=== PATIENT | male | born 1940 | race Caucasian/White ===

== ENCOUNTER → 2016-11-14 | Outpatient (CLI) | payer MEDICARE, BC ==
[~2016-11-14] MED LIST: ALEV220T26 PO; ASPI1TAB PO; GLUC1CAP10 PO; OCUVTAB4 PO; OMEP40CA2 PO; VITA100066 PO; VITMTA PO
--- NOTE | 2016-11-18 06:34 | EEG ---
DATE OF PROCEDURE: 11/14/2016 REFERRING PHYSICIAN: Dr. Archana Mitchell. DIAGNOSIS: Transient ischemic attack. EEG NUMBER: [id number]. HISTORY: Patient is a 76-year-old man who was admitted at [facility] who became confused and did not know what he was doing and kept repeating himself. This EEG was done to rule out epileptic potential. He is currently taking aspirin, Prilosec, multivitamins. TECHNICAL DESCRIPTION: This digital EEG was recorded by 21 scalp, ear and two EKG electrodes and was reviewed in bipolar and referential montages following reformatting in 10-20 international electrode placement system. INTERPRETATION: The patient was noted to be in awake and drowsy states during this EEG. Resting awake background consisted of well formed posterior dominant rhythm with anterior/posterior gradient comprising of 8 Hertz alpha activity measuring 15 - 40 microvolts in amplitude. Attenuation of posterior dominant rhythm was seen during transition into drowsiness. Stage I and II sleep were reviewed and were symmetric bilaterally. Hyperventilation and photic stimulation remained unremarkable. EKG revealed normal sinus rhythm with premature atrial complexes. No focal, lateralizing or epileptiform abnormalities were seen. No clinical or electrographic seizures were recorded. CONCLUSION: This EEG in awake, drowsy states, stage I and II sleep is within normal limits.
== END ==
LOC: M SLEEP 09:34
PROVIDERS: ATTEND Internal Medicine Nephrology
DX: R56.9 Unspecified convulsions (principal)

== ENCOUNTER → 2017-01-09 | Outpatient (CLI) | payer MEDICARE, BC ==
--- NOTE | 2017-01-09 15:00 | REP ---
Whole body radionuclide bone scan: History: Prostate malignancy. Recently elevated PSA levels post prostatectomy. No comparison bone scan. Technique: 22.0 mCi technetium 99m MDP is injected and standard whole body bone scan imaging is acquired. Scintigraphic findings: There is a normal distribution of skeletal tracer with uptake in bilateral kidneys and in the urinary bladder. There is some arthritic uptake in the knees bilaterally and in the wrists bilaterally. 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 There is some degenerative uptake at L4-5 in the lumbar spine and to a lesser extent in the thoracic spine. There is no evidence to suggest skeletal metastatic disease based on the bone scan images. Impression: No evidence to suggest skeletal metastatic disease. Signed by Ethan De Leon MD 01/09/2017 04:47 P
== END ==
LOC: M RAD 10:17
PROVIDERS: ATTEND Radiology Therapeutic Radiology
DX: C61 Malignant neoplasm of prostate (principal)
CPT/HCPCS: 78306; A9503

== ENCOUNTER → 2017-04-14 | Outpatient (CLI) | payer MEDICARE, BC ==
[~2017-04-14] MED LIST changes: +TYLE325T5 PO
[2017-04-14 16:24] LABS: ANION GAP 5 MEQ/L (8-16); BLOOD UREA NITROGEN 20 MG/DL (7-18); CALCIUM LEVEL 8.3 MG/DL (8.8-10.2); CARBON DIOXIDE LEVEL 31 MEQ/L (21-32); CHLORIDE LEVEL 104 MEQ/L (98-107); CREATININE FOR GFR 1.06 MG/DL (0.70-1.30); GLOMERULAR FILTRATION RATE > 60.0 (>42); GLUCOSE, FASTING 139 MG/DL (83-110); POTASSIUM SERUM 4.2 MEQ/L (3.5-5.1); SODIUM LEVEL 140 MEQ/L (136-145)
--- NOTE | 2017-04-14 16:32 | ECGEPIP ---
Stationary ECG Study [facility] Test Date: 2017-04-14 Pat Name: MELANIE OWENS Department: Room: - Gender: M Manager Law: NHI : 1940 Requested By: John Ta Order Number: [id number] Reading MD: John Gonzalez Measurements Intervals [place] Rate: 63 P: 49 WV: 144 QRS: 36 QRSD: 96 T: 24 QT: 392 QTc: 402 Interpretive Statements SINUS RHYTHM WITH MARKED SINUS ARRHYTHMIA Electronically Signed On 04-14-2017 16:32:11 EDT by John Gonzalez
== END ==
LOC: M LAB 15:13
PROVIDERS: ATTEND Ophthalmology
DX: H25.12 Age-related nuclear cataract, left eye (principal)

== ENCOUNTER → 2017-04-30 | Day surgery (SDC) | payer MEDICARE, BC ==
[~2017-04-30] VITALS: Ht 170.2 cm; Wt 73.9 kg
[~2017-04-30] MED LIST changes: +ACETYLCHOLINE OPHTH SOLN 1% 2ML (MIOCHOL-E) As Ordered ONE; +BALANCED SALT IRRIGATION SOL 500ML GLASS BOTTLE (FOR OR EYE COMPOUND) As Ordered ONE; +BALANCED SALT IRRIGATION SOLUTION 500ML BAG (FOR OR EYE MACHINE) As Ordered ONE; +CEFUROXIME 1MG/0.1ML INTRACAMERAL INJ As Ordered ONE; +D5W/0.2% SODIUM CHLORIDE 250 ML IV ONE; +DUOVISC (0.50ML VISCOAT/0.55ML PROVISC) OPHTH KIT As Ordered ONE; +LIDOCAINE 0.75%/EPINEPHRINE 0.025% IN BSS 1ML SYR INTRACAMERAL (OR ONLY) As Ordered ONE; +LIDOCAINE 4% INJ 5 ML AMP As Ordered ONE; +MIDAZOLAM INJ 2 MG/2 ML VIAL (J2250) As Ordered ONE; +OFLOXACIN 0.3 % (OCUFLOX) OPTH SOL 5ML OS ONE; +PHENYLEPHRINE 2.5% OPHTH SOL 2ML OS ONE; +POVIDONE-IODINE 5% OPHTH PREP SOL 30ML As Ordered ONE; +PROPARACAINE 0.5% OPHTH SOL 15ML OS ONE; +TROPICAMIDE 1% OPHTH SOLN 2ML OS ONE; +fentaNYL 100 MCG/2 ML INJECTION (J3010) As Ordered ONE
[2017-04-30 14:00] VITALS: BP 127/51
--- NOTE | 2017-05-01 09:05 | RO ---
DATE OF PROCEDURE: 04/30/2017 PREOPERATIVE DIAGNOSIS: Visually significant nuclear sclerotic cataract left eye. POSTOPERATIVE DIAGNOSIS: Visually significant nuclear sclerotic cataract left eye. PROCEDURE: Cataract extraction with use of phacoemulsification, and placement of intraocular lens, AU00T0, 17.5 D , left eye. SURGEON: Arsalan Cavazos DO [employer]ENOGRAPHIC [employer] REPORTER: ANESTHESIA: Local with monitored anesthesia care (MAC). COMPLICATIONS: None. POSTOPERATIVE CONDITION: Stable. INDICATION FOR SURGERY: Blurred vision left eye affecting patient's activities of daily living. DESCRIPTION OF PROCEDURE: The patient was seen in the preoperative area and properly identified. The correct operative eye was identified and marked. Attention was turned to that eye. The patient received topical antibiotics in the preoperative area. The patient then received topical dilating drops consisting of Tropicamide and Phenylephrine. The patient was then transferred to the operating room. The correct side was re-identified. The patient received topical anesthetics and antibiotics on the surface of the eye. The eye was prepped and draped in a sterile fashion. The upper and lower eyelids were isolated with Tegaderm tape, and the lids were held open with an adjustable speculum. Using a sideport blade, a paracentesis incision was made. Intraocular preservative-free lidocaine was then injected into the anterior chamber. Viscoelastic was then injected into the anterior chamber through the paracentesis. Using a 2.6 mm sharp-tipped keratome, the anterior chamber was entered via a temporal clear corneal incision. A continuous curvilinear capsulorrhexis was created with the aid of a 26g cystotome and utrata forceps. Hydrodissection was performed with balanced salt solution (BSS) on a blunt cannula until the nucleus was freely mobile. The crystalline lens was phacoemulsified and aspirated. Additional cohesive viscoelastic was placed into the capsular bag to deepen it. AU00T0 lens 17.5 D was placed into the capsular bag and confirmed by visualizing the continuous curvilinear capsulorrhexis. Additional irrigation and aspiration was used to remove cortical material and remaining viscoelastic. The clear corneal incision was hydrated with BSS on a blunt cannula. The lens was well positioned. The incisions were then tested for leaks and found to be negative. The eye was then palpated for appropriate pressure and adjusted accordingly with BSS. The eyelid speculum was carefully removed. A shield was then secured over the eye. The patient tolerated the procedure well and was discharged to the recovery unit in a stable condition. HAYDEN
== END | disposition home or self-care (01) ==
LOC: M SDC 11:31
PROVIDERS: ATTEND Ophthalmology
DX: H25.12 Age-related nuclear cataract, left eye (principal); K44.9 Diaphragmatic hernia without obstruction or gangrene; I49.1 Atrial premature depolarization; K21.9 Gastro-esophageal reflux disease without esophagitis; M54.9 Dorsalgia, unspecified; R32 Unspecified urinary incontinence; F17.290 Nicotine dependence, other tobacco product, uncomplicated; Z79.899 Other long term (current) drug therapy; Z79.82 Long term (current) use of aspirin; Z86.73 Personal history of transient ischemic attack (TIA), and cerebral infarction without residual deficits; Z85.46 Personal history of malignant neoplasm of prostate; Z86.19 Personal history of other infectious and parasitic diseases; Z92.3 Personal history of irradiation
CPT/HCPCS: 66984; J2250; J3010; V2632

== ENCOUNTER → 2017-05-14 | Day surgery (SDC) | payer MEDICARE, BC ==
[~2017-05-14] VITALS: Ht 170.2 cm; Wt 73.9 kg
[~2017-05-14] MED LIST changes: -BALANCED SALT IRRIGATION SOL 500ML GLASS BOTTLE (FOR OR EYE COMPOUND) As Ordered ONE; -D5W/0.2% SODIUM CHLORIDE 250 ML IV ONE; +LR 500 ML IV ONE; +OFLOXACIN 0.3 % (OCUFLOX) OPTH SOL 5ML OD ONE; -OFLOXACIN 0.3 % (OCUFLOX) OPTH SOL 5ML OS ONE; +PHENYLEPHRINE 2.5% OPHTH SOL 2ML OD ONE; -PHENYLEPHRINE 2.5% OPHTH SOL 2ML OS ONE; +PROPARACAINE 0.5% OPHTH SOL 15ML OD ONE; -PROPARACAINE 0.5% OPHTH SOL 15ML OS ONE; +TROPICAMIDE 1% OPHTH SOLN 2ML OD ONE; -TROPICAMIDE 1% OPHTH SOLN 2ML OS ONE
[2017-05-14 12:00] VITALS: BP 148/85
--- NOTE | 2017-05-21 18:52 | RO ---
DATE OF PROCEDURE: 05/14/2016 PREOPERATIVE DIAGNOSIS: Visually significant nuclear sclerotic cataract right eye. POSTOPERATIVE DIAGNOSIS: Visually significant nuclear sclerotic cataract right eye. PROCEDURE: Cataract extraction with use of phacoemulsification, and placement of intraocular lens, AU00T0, 18.0 diopters, right eye. SURGEON: Arsalan Cavazos DO CUSTOMER TRAINER: ANESTHESIA: Local with monitored anesthesia care (MAC). COMPLICATIONS: None. POSTOPERATIVE CONDITION: Stable. INDICATION FOR SURGERY: Blurred vision right eye affecting patient's activities of daily living. DESCRIPTION OF PROCEDURE: The patient was seen in the preoperative area and properly identified. The correct operative eye was identified and marked. Attention was turned to that eye. The patient received topical antibiotics in the preoperative area. The patient then received topical dilating drops consisting of Tropicamide and Phenylephrine. The patient was then transferred to the operating room. The correct side was re-identified. The patient received topical anesthetics and antibiotics on the surface of the eye. The eye was prepped and draped in a sterile fashion. The upper and lower eyelids were isolated with Tegaderm tape, and the lids were held open with an adjustable speculum. Using a sideport blade, a paracentesis incision was made. Intraocular preservative-free lidocaine was then injected into the anterior chamber. Viscoelastic was then injected into the anterior chamber through the paracentesis. Using a 2.6 mm sharp-tipped keratome, the anterior chamber was entered via a temporal clear corneal incision. A continuous curvilinear capsulorrhexis was created with the aid of a 26g cystotome and utrata forceps. Hydrodissection was performed with balanced salt solution (BSS) on a blunt cannula until the nucleus was freely mobile. The crystalline lens was phacoemulsified and aspirated. Additional cohesive viscoelastic was placed into the capsular bag to deepen it. A AU00T0 lens, 18.0 diopters was placed into the capsular bag and confirmed by visualizing the continuous curvilinear capsulorrhexis. Additional irrigation and aspiration was used to remove cortical material and remaining viscoelastic. The clear corneal incision was hydrated with BSS on a blunt cannula. The lens was well positioned. The incisions were then tested for leaks and found to be negative. The eye was then palpated for appropriate pressure and adjusted accordingly with BSS. The eyelid speculum was carefully removed. An eye shield was placed over the eye. The patient tolerated the procedure well and was discharged to the recovery unit in a stable condition. HAYDEN
== END | disposition home or self-care (01) ==
LOC: M SDC 09:22
PROVIDERS: ATTEND Ophthalmology
DX: H25.11 Age-related nuclear cataract, right eye (principal); K21.9 Gastro-esophageal reflux disease without esophagitis; Z86.73 Personal history of transient ischemic attack (TIA), and cerebral infarction without residual deficits; Z92.3 Personal history of irradiation; Z85.46 Personal history of malignant neoplasm of prostate; Z79.82 Long term (current) use of aspirin
CPT/HCPCS: 66984; J2250; J3010; V2632

== ENCOUNTER → 2017-11-24 | Outpatient (CLI) | payer MEDICARE, BC | LOC: M RAD 13:39 | DX: M51.16 Intervertebral disc disorders with radiculopathy, lumbar region (principal); M51.26 Other intervertebral disc displacement, lumbar region | CPT/HCPCS: 72131 ==

== ENCOUNTER 2017-12-28 10:59 | Day surgery (SDC) | payer MEDICARE, BC ==
[~2017-12-28 10:59] MED LIST changes: -ACETYLCHOLINE OPHTH SOLN 1% 2ML (MIOCHOL-E) As Ordered ONE; -ALEV220T26 PO; -ASPI1TAB PO; -BALANCED SALT IRRIGATION SOLUTION 500ML BAG (FOR OR EYE MACHINE) As Ordered ONE; -CEFUROXIME 1MG/0.1ML INTRACAMERAL INJ As Ordered ONE; -DUOVISC (0.50ML VISCOAT/0.55ML PROVISC) OPHTH KIT As Ordered ONE; -GLUC1CAP10 PO; -LIDOCAINE 0.75%/EPINEPHRINE 0.025% IN BSS 1ML SYR INTRACAMERAL (OR ONLY) As Ordered ONE; +LIDOCAINE 2% INJ 100 MG/5 ML SDV (FOR ANES.) As Ordered; -LIDOCAINE 4% INJ 5 ML AMP As Ordered ONE; -LR 500 ML IV ONE; -MIDAZOLAM INJ 2 MG/2 ML VIAL (J2250) As Ordered ONE; -OCUVTAB4 PO; -OFLOXACIN 0.3 % (OCUFLOX) OPTH SOL 5ML OD ONE; -OMEP40CA2 PO; -PHENYLEPHRINE 2.5% OPHTH SOL 2ML OD ONE; -POVIDONE-IODINE 5% OPHTH PREP SOL 30ML As Ordered ONE; -PROPARACAINE 0.5% OPHTH SOL 15ML OD ONE; +PROPOFOL 200 MG/20 ML VIAL As Ordered; -TROPICAMIDE 1% OPHTH SOLN 2ML OD ONE; -TYLE325T5 PO; -VITA100066 PO; -VITMTA PO; -fentaNYL 100 MCG/2 ML INJECTION (J3010) As Ordered ONE
[2017-12-28] MEDS: NS 1,000 ML IV (11:15)
== END 2017-12-28 13:35 | disposition home or self-care (01) ==
LOC: M OPP 10:59
DX: Z12.11 Encounter for screening for malignant neoplasm of colon (principal); Z80.0 Family history of malignant neoplasm of digestive organs; K64.0 First degree hemorrhoids; K57.30 Diverticulosis of large intestine without perforation or abscess without bleeding; R19.7 Diarrhea, unspecified; R19.4 Change in bowel habit; R13.10 Dysphagia, unspecified; R12 Heartburn; K22.2 Esophageal obstruction; K31.89 Other diseases of stomach and duodenum; K44.9 Diaphragmatic hernia without obstruction or gangrene; M54.9 Dorsalgia, unspecified; Z85.46 Personal history of malignant neoplasm of prostate; Z92.3 Personal history of irradiation; F17.290 Nicotine dependence, other tobacco product, uncomplicated; Z79.82 Long term (current) use of aspirin; Z79.899 Other long term (current) drug therapy
CPT/HCPCS: G0105

== ENCOUNTER 2018-01-12 14:45 | Inpatient (IN) | payer MEDICARE, BC ==
[2018-01-12] MEDS: HEPARIN SOD (PORCINE) 5000 UNITS/ML VIAL SC ×2 (13:45→21:36)
[~2018-01-12 14:45] MED LIST changes: +BISACODYL 10 MG SUPP PR; +FLEET ENEMA PR; -LIDOCAINE 2% INJ 100 MG/5 ML SDV (FOR ANES.) As Ordered; +MOM 30ML SUSPENSION UDC PO; +ONDANSETRON 4 MG TAB (S0181) PO; +ONDANSETRON 4MG/2ML VIAL (J2405) IM; -PROPOFOL 200 MG/20 ML VIAL As Ordered; +oxyCODONE 5MG TAB PO
[2018-01-12 17:19] LABS: APPEARANCE, URINE HAZY (CLEAR); BACTERIA, URINE AUTO NEGATIVE (NEGATIVE); BILIRUBIN, URINE AUTO NEGATIVE (NEGATIVE); BLOOD, URINE BLOOD 1+ (NEGATIVE); COLOR, URINE YELLOW (YELLOW); GLUCOSE, URINE (UA) AUTO NEGATIVE (NEGATIVE); KETONE, URINE AUTO NEGATIVE (NEGATIVE); LEUKOCYTE ESTERASE, URINE AUTO NEGATIVE (NEGATIVE); MUCUS, URINE SMALL (NEGATIVE); NITRITE, URINE AUTO NEGATIVE (NEGATIVE); PROTEIN, URINE AUTO 1+ mg/dL (NEGATIVE); RBC, URINE AUTO 1 /HPF (0-3); SPECIFIC GRAVITY URINE AUTO 1.025 (1.002-1.035); SQUAMOUS EPITHELIAL CELL UR AU 1 /HPF (0-6); UROBILINOGEN, URINE AUTO 0.2 mg/dL (0.0-2.0); WBC, URINE AUTO 2 /HPF (0-3)
[2018-01-12] MEDS: ACETAMINOPHEN 325 MG TAB PO ×2 (17:35→21:36)
[2018-01-12] MEDS: SENNA 8.6 MG TAB (SENOKOT) PO (21:00)
[2018-01-13] MEDS: oxyCODONE 5MG TAB PO ×2 (06:18→17:32)
[2018-01-13 06:37] LABS: BASO % 0.2 % (0.0-1.0); EOS # 0.2 10^3/uL (0.0-0.50); HEMATOCRIT 32.3 % (42.0-52.0); HEMOGLOBIN 10.6 g/dl (14.0-18.0); IMMATURE GRANULOCYTE % 0.8 % (0-3.0); LYMPH # 0.8 10^3/uL (1.5-4.5); MEAN CORPUSCULAR HEMOGLOBIN 30.2 pg (27.0-33.0); MEAN CORPUSCULAR HGB CONC 32.8 g/dl (32.0-36.5); MONO # 0.6 10^3/uL (0.0-0.8); MONO % 11.4 % (0.0-5.0); NEUTROPHILS # 3.7 10^3/uL (1.8-7.7); NEUTROPHILS % 69.6 % (36.0-66.0); PLATELET COUNT, AUTOMATED 240 10^3/uL (150-450); RED BLOOD COUNT 3.51 10^6/uL (4.30-6.10); RED CELL DISTRIBUTION WIDTH 12.8 % (11.5-14.5); WHITE BLOOD COUNT 5.3 10^3/uL (4.0-10.0)
[2018-01-13 06:47] LABS: PROTHROMBIN TIME 13.4 SECONDS (12.4-14.5)
[2018-01-13 06:57] LABS: ALBUMIN 2.5 GM/DL (3.2-5.2); ALBUMIN/GLOBULIN RATIO 0.61 (1.00-1.93); ALKALINE PHOSPHATASE 139 U/L (45-117); ALT/SGPT 43 U/L (12-78); ANION GAP 3 MEQ/L (8-16); AST/SGOT 49 U/L (7-37); BILIRUBIN,TOTAL 0.5 MG/DL (0.2-1.0); BLOOD UREA NITROGEN 16 MG/DL (7-18); CALCIUM LEVEL 8.7 MG/DL (8.8-10.2); CARBON DIOXIDE LEVEL 34 MEQ/L (21-32); CHLORIDE LEVEL 102 MEQ/L (98-107); CREATININE FOR GFR 0.92 MG/DL (0.70-1.30); GLOMERULAR FILTRATION RATE > 60.0 (>42); GLUCOSE, FASTING 104 MG/DL (70-100); SODIUM LEVEL 139 MEQ/L (136-145); TOTAL PROTEIN 6.6 GM/DL (6.4-8.2)
[2018-01-13] MEDS: DULoxetine 30 MG CAP (CYMBALTA) PO (08:30)
[2018-01-13] MEDS: MULTIVITAMINS/MINERALS THERAP 1 TAB PO (08:30)
[2018-01-13] MEDS: PANTOPRAZOLE 40MG TAB (PROTONIX) PO (08:30)
[2018-01-13] MEDS: ACETAMINOPHEN 325 MG TAB PO ×3 (08:30→20:50)
[2018-01-13] MEDS: MIRALAX *UNIT DOSE* 17GM PACKET PO (08:30)
[2018-01-13] MEDS: OCUVITE 1 TAB PO (08:30)
[2018-01-13] MEDS: DOCUSATE SODIUM 100 MG CAP PO (08:30)
[2018-01-13] MEDS: VITAMIN D 1,000 INTERNATIONAL UNITS TABLET PO (08:30)
[2018-01-13] MEDS: HEPARIN SOD (PORCINE) 5000 UNITS/ML VIAL SC ×2 (08:31→20:50)
[2018-01-13] MEDS: BACITRACIN OINT 30GM TOP (08:31)
[2018-01-13] MEDS: LOPERAMIDE 2 MG CAP PO (18:32)
[2018-01-14] MEDS: LOPERAMIDE 2 MG CAP PO ×3 (00:06→08:27)
[2018-01-14] MEDS: oxyCODONE 5MG TAB PO ×2 (04:59→12:03)
[2018-01-14] MEDS: MULTIVITAMINS/MINERALS THERAP 1 TAB PO (08:19)
[2018-01-14] MEDS: PANTOPRAZOLE 40MG TAB (PROTONIX) PO (08:19)
[2018-01-14] MEDS: DULoxetine 30 MG CAP (CYMBALTA) PO (08:19)
[2018-01-14] MEDS: BACITRACIN OINT 30GM TOP (08:20)
[2018-01-14] MEDS: VITAMIN D 1,000 INTERNATIONAL UNITS TABLET PO (08:20)
[2018-01-14] MEDS: HEPARIN SOD (PORCINE) 5000 UNITS/ML VIAL SC ×2 (08:20→20:44)
[2018-01-14] MEDS: ACETAMINOPHEN 325 MG TAB PO ×3 (08:20→20:44)
[2018-01-14] MEDS: MELOXICAM (MOBIC) 7.5 MG TAB PO (12:21)
[2018-01-14] MEDS: DICLOFENAC EPOLAMINE 1.3 % PATCH TOP ×2 (12:22→20:44)
[2018-01-15] MEDS: LOPERAMIDE 2 MG CAP PO ×2 (05:19→08:59)
[2018-01-15] MEDS: MELOXICAM (MOBIC) 7.5 MG TAB PO (08:56)
[2018-01-15] MEDS: VITAMIN D 1,000 INTERNATIONAL UNITS TABLET PO (08:56)
[2018-01-15] MEDS: DULoxetine 30 MG CAP (CYMBALTA) PO (08:56)
[2018-01-15] MEDS: MULTIVITAMINS/MINERALS THERAP 1 TAB PO (08:56)
[2018-01-15] MEDS: PANTOPRAZOLE 40MG TAB (PROTONIX) PO (08:56)
[2018-01-15] MEDS: HEPARIN SOD (PORCINE) 5000 UNITS/ML VIAL SC ×2 (08:57→21:09)
[2018-01-15] MEDS: DICLOFENAC EPOLAMINE 1.3 % PATCH TOP ×2 (08:57→21:09)
[2018-01-15] MEDS: ACETAMINOPHEN 325 MG TAB PO ×3 (08:57→21:09)
[2018-01-15] MEDS: BACITRACIN OINT 30GM TOP (08:58)
[2018-01-16] MEDS: LOPERAMIDE 2 MG CAP PO ×2 (02:28→12:22)
[2018-01-16] MEDS: oxyCODONE 5MG TAB PO (05:45)
[2018-01-16] MEDS: HEPARIN SOD (PORCINE) 5000 UNITS/ML VIAL SC ×2 (08:36→20:38)
[2018-01-16] MEDS: BACITRACIN OINT 30GM TOP (08:37)
[2018-01-16] MEDS: VITAMIN D 1,000 INTERNATIONAL UNITS TABLET PO (08:37)
[2018-01-16] MEDS: MULTIVITAMINS/MINERALS THERAP 1 TAB PO (08:37)
[2018-01-16] MEDS: MELOXICAM (MOBIC) 7.5 MG TAB PO (08:37)
[2018-01-16] MEDS: ACETAMINOPHEN 325 MG TAB PO ×3 (08:37→20:39)
[2018-01-16] MEDS: PANTOPRAZOLE 40MG TAB (PROTONIX) PO (08:37)
[2018-01-16] MEDS: DULoxetine 30 MG CAP (CYMBALTA) PO (08:37)
[2018-01-16] MEDS: DICLOFENAC EPOLAMINE 1.3 % PATCH TOP ×2 (08:38→20:39)
[2018-01-17] MEDS: oxyCODONE 5MG TAB PO (06:35)
[2018-01-17] MEDS: ACETAMINOPHEN 325 MG TAB PO ×3 (09:47→20:40)
[2018-01-17] MEDS: MELOXICAM (MOBIC) 7.5 MG TAB PO (09:47)
[2018-01-17] MEDS: MULTIVITAMINS/MINERALS THERAP 1 TAB PO (09:47)
[2018-01-17] MEDS: DULoxetine 30 MG CAP (CYMBALTA) PO (09:47)
[2018-01-17] MEDS: HEPARIN SOD (PORCINE) 5000 UNITS/ML VIAL SC ×2 (09:47→20:40)
[2018-01-17] MEDS: PANTOPRAZOLE 40MG TAB (PROTONIX) PO (09:47)
[2018-01-17] MEDS: BACITRACIN OINT 30GM TOP (09:47)
[2018-01-17] MEDS: VITAMIN D 1,000 INTERNATIONAL UNITS TABLET PO (09:47)
[2018-01-17] MEDS: DICLOFENAC EPOLAMINE 1.3 % PATCH TOP ×2 (09:48→20:41)
[2018-01-17] MEDS: LOPERAMIDE 2 MG CAP PO (16:14)
[2018-01-18] MEDS: BACITRACIN OINT 30GM TOP (09:00)
[2018-01-18] MEDS: VITAMIN D 1,000 INTERNATIONAL UNITS TABLET PO (09:00)
[2018-01-18] MEDS: HEPARIN SOD (PORCINE) 5000 UNITS/ML VIAL SC ×2 (09:00→21:09)
[2018-01-18] MEDS: ACETAMINOPHEN 325 MG TAB PO ×3 (09:00→21:09)
[2018-01-18] MEDS: MULTIVITAMINS/MINERALS THERAP 1 TAB PO (09:01)
[2018-01-18] MEDS: DICLOFENAC EPOLAMINE 1.3 % PATCH TOP ×2 (09:01→21:09)
[2018-01-18] MEDS: DULoxetine 30 MG CAP (CYMBALTA) PO (09:01)
[2018-01-18] MEDS: MELOXICAM (MOBIC) 7.5 MG TAB PO (09:01)
[2018-01-18] MEDS: PANTOPRAZOLE 40MG TAB (PROTONIX) PO (09:01)
[2018-01-18] MEDS: LOPERAMIDE 2 MG CAP PO (17:01)
[2018-01-19] MEDS: ASPIRIN 81 MG ENTERIC TAB PO (05:53)
[2018-01-19] MEDS: MELOXICAM (MOBIC) 7.5 MG TAB PO (09:05)
[2018-01-19] MEDS: PANTOPRAZOLE 40MG TAB (PROTONIX) PO (09:05)
[2018-01-19] MEDS: MULTIVITAMINS/MINERALS THERAP 1 TAB PO (09:05)
[2018-01-19] MEDS: DULoxetine 30 MG CAP (CYMBALTA) PO (09:05)
[2018-01-19] MEDS: VITAMIN D 1,000 INTERNATIONAL UNITS TABLET PO (09:05)
[2018-01-19] MEDS: HEPARIN SOD (PORCINE) 5000 UNITS/ML VIAL SC (09:06)
[2018-01-19] MEDS: DICLOFENAC EPOLAMINE 1.3 % PATCH TOP (09:06)
[2018-01-19] MEDS: BACITRACIN OINT 30GM TOP (09:07)
== END 2018-01-19 11:30 | disposition home or self-care (01) | DRG 93 ==
LOC: M PM&R 14:45
DX: R26.89 Other abnormalities of gait and mobility (principal); K21.9 Gastro-esophageal reflux disease without esophagitis; F32.9 Major depressive disorder, single episode, unspecified; E55.9 Vitamin D deficiency, unspecified; R53.1 Weakness; R19.7 Diarrhea, unspecified; R32 Unspecified urinary incontinence; F17.290 Nicotine dependence, other tobacco product, uncomplicated; Z98.1 Arthrodesis status; G89.18 Other acute postprocedural pain; Z98.49 Cataract extraction status, unspecified eye; Z98.52 Vasectomy status; Z79.82 Long term (current) use of aspirin; Z79.899 Other long term (current) drug therapy

== ENCOUNTER → 2018-04-07 | Outpatient (CLI) | payer MEDICARE, BC | LOC: M RAD 09:25 | DX: M43.16 Spondylolisthesis, lumbar region (principal); M51.36 Other intervertebral disc degeneration, lumbar region; M51.37 Other intervertebral disc degeneration, lumbosacral region; M25.78 Osteophyte, vertebrae; Z98.1 Arthrodesis status | CPT/HCPCS: 72100 ==

== ENCOUNTER → 2020-02-02 | Outpatient (REF) | payer MEDICARE, BC ==
[~2020-02-02] MED LIST changes: +ACET1TAB55 PO; +ALEV220T26 PO; +ASPI81TA26 PO; +BISA10SU4 PR; -BISACODYL 10 MG SUPP PR; +DULO1CAP6 PO; -FLEET ENEMA PR; +GLUC1CAP10 PO; +HEPA1INJ23 SC; +LOPE2CA PO; +MELO7.5T7 PO; +MILKSUS5 PO; -MOM 30ML SUSPENSION UDC PO; +OCUVTAB4 PO; +OMEP40CA97 PO; -ONDANSETRON 4 MG TAB (S0181) PO; -ONDANSETRON 4MG/2ML VIAL (J2405) IM; +OXYC-517 PO; +PANT40TA3 PO; +SENN1TAB10 PO; +TYLE325T5 PO; +VITA100066 PO; +VITMTA PO; +VOLT1GEL15 TD; -oxyCODONE 5MG TAB PO
== END ==
LOC: M LAB REF 16:04
PROVIDERS: ATTEND Registered Nurse
DX: M06.2 Rheumatoid bursitis (principal)

== ENCOUNTER → 2021-02-01 | Outpatient (CLI) | payer MEDICARE, BC ==
[~2021-02-01] MED LIST changes: +PANT40TA29 PO; -PANT40TA3 PO
--- NOTE | 2021-02-01 15:08 | REPVR ---
PROCEDURE INFORMATION: Exam: MR Head Without Contrast Exam date and time: 02/01/2021 1:52 PM Age: 80 years old Clinical indication: Pain; Other: RT frontal lobe pressure; Patient HX: PT states severe pressure and blurry vision in the RT frontal lobe only that comes and goes and is becoming more frequent and severe; Additional info: Headache TECHNIQUE: Imaging protocol: MR of the head without contrast. COMPARISON: MRA BRAIN W/O CONTRAST 02/01/2021 1:33 PM FINDINGS: Brain: No acute infarct identified on the diffusion-weighted imaging. No parenchymal hemorrhage. The brain demonstrates [id number] generalized volume loss. Patchy foci of increased signal intensity in the deep and subcortical white matter most likely representing mild chronic small vessel ischemic change. No significant white matter disease for the patient's age. No evidence of brain parenchymal edema or intracranial mass effect. Cerebral ventricles: The ventricles are mildly enlarged in keeping with volume loss. Bones/joints: [id number] upper cervical spine degenerative disc disease and facet arthropathy. Paranasal sinuses: Trace ethmoid mucosal thickening. Mastoid air cells: Normal as visualized. No mastoid effusion. Orbital cavity: Thinning of the lenses of the globes consistent with prior lens surgery. No acute orbital findings identified. Soft tissues: Unremarkable. IMPRESSION: No acute intracranial abnormality. Electronically signed by: Funmilayo Cohen On 02/01/2021 15:08:03 PM
--- NOTE | 2021-02-01 15:15 | REPVR ---
PROCEDURE INFORMATION: Exam: MR Angiogram Head Without Contrast, Arteries Exam date and time: 02/01/2021 1:52 PM Age: 80 years old Clinical indication: Pain; Other: Frontal lobe pressure; Patient HX: PT states severe pressure and blurry vision in the RT frontal lobe only that comes and goes and is becoming more frequent and severe; Additional info: Headache TECHNIQUE: Imaging protocol: MR angiogram head without contrast. Exam focused on the arteries. COMPARISON: MRA BRAIN W/O CONTRAST 11/06/2016 7:05 PM FINDINGS: ANTERIOR CIRCULATION: Right internal carotid artery: No occlusion or significant stenosis. No aneurysm. The posterior cavernous right ICA is mildly ectatic, stable. Right middle cerebral artery: No occlusion or significant stenosis. No aneurysm. Right anterior cerebral artery: No occlusion or significant stenosis. No aneurysm. 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 Tiny conical outpouching from the supraclinoid ICA, likely a vascular infundibulum. No significant ICA aneurysm. No stenosis or occlusion. Left middle cerebral artery: No occlusion or significant stenosis. No aneurysm. Left anterior cerebral artery: No occlusion or significant stenosis. No aneurysm. POSTERIOR CIRCULATION: Right vertebral artery: No occlusion or significant stenosis. No aneurysm. Left vertebral artery: No occlusion or significant stenosis. No aneurysm. Basilar artery: No occlusion or significant stenosis. No aneurysm. Right posterior cerebral artery: No occlusion or significant stenosis. No aneurysm. Left posterior cerebral artery: No occlusion or significant stenosis. No aneurysm. IMPRESSION: No significant stenosis or vascular malformation identified. Electronically signed by: Funmilayo Cohen On 02/01/2021 15:15:31 PM
== END ==
LOC: M PLARAD 13:21
PROVIDERS: ATTEND Internal Medicine
DX: R51.9 Headache, unspecified (principal)

== ENCOUNTER 2022-01-07 09:47 | Emergency (ER) | payer MEDICARE, BC ==
[~2022-01-07] VITALS: Ht 170.2 cm; Wt 72.7 kg
[~2022-01-07 09:47] MED LIST changes: +OMEP40CA4 PO; -OMEP40CA97 PO
[2022-01-07] MEDS ORDERED: CARB25TA9 (09:57)
[2022-01-07] MEDS ORDERED: ACETAMINOPHEN 325 MG TAB PO ONE (11:00)
[2022-01-07 11:19] VITALS: BP 128/64
== END 2022-01-07 11:19 | disposition home or self-care (01) ==
LOC: M ED 09:47
DX: S06.0X0A Concussion without loss of consciousness, initial encounter (principal); S00.03XA Contusion of scalp, initial encounter; W00.9XXA Unspecified fall due to ice and snow, initial encounter; Y92.099 Unspecified place in other non-institutional residence as the place of occurrence of the external cause; Y93.9 Activity, unspecified; Y99.9 Unspecified external cause status; F32.9 Major depressive disorder, single episode, unspecified; G20 Parkinson's disease; K21.9 Gastro-esophageal reflux disease without esophagitis; Z87.442 Personal history of urinary calculi; M54.9 Dorsalgia, unspecified; Z79.82 Long term (current) use of aspirin; Z79.899 Other long term (current) drug therapy

== ENCOUNTER → 2022-07-17 | Outpatient (CLI) | payer MEDICARE, BC ==
[~2022-07-17] MED LIST changes: +CARB25TA9; +DULO1CAP5 PO; +PRESCAP PO; +VITA100093 PO
== END ==
LOC: M LABSMTC 09:21
PROVIDERS: ATTEND Anesthesiology
DX: Z01.818 Encounter for other preprocedural examination (principal); Z11.52 Encounter for screening for COVID-19

== ENCOUNTER 2022-07-19 10:37 | Emergency (ER) | payer MEDICARE, BC ==
[~2022-07-19] VITALS: Ht 170.2 cm; Wt 73.1 kg
[2022-07-19] MEDS ORDERED: predniSONE 20 MG TAB PO ONE (11:50)
[2022-07-19] MEDS ORDERED: valACYclovir HCL 500 MG TAB PO ONE (11:50)
[2022-07-19] MEDS ORDERED: PRED20TA PO (11:51)
[2022-07-19] MEDS ORDERED: VALT1TAB PO (11:51)
[2022-07-19 12:34] VITALS: BP 117/74
== END 2022-07-19 12:35 | disposition home or self-care (01) ==
LOC: M ED 10:37
DX: G51.0 Bell's palsy (principal); G20 Parkinson's disease; K21.9 Gastro-esophageal reflux disease without esophagitis; Z85.46 Personal history of malignant neoplasm of prostate; Z79.899 Other long term (current) drug therapy
CPT/HCPCS: 70450; 99284; J7512

== ENCOUNTER 2022-07-21 09:00 | Day surgery (SDC) | payer MEDICARE, BC ==
[~2022-07-21] VITALS: Ht 170.2 cm; Wt 73.4 kg
[~2022-07-21 09:00] MED LIST changes: +LIDOCAINE 2% 100MG/5ML SDV (FOR ANES.) As Ordered ONE; +NS 1,000 ML IV ONE; +PRED20TA PO; +VALT1TAB PO; +propofoL 200 MG/20 ML VIAL As Ordered ONE
[2022-07-21 10:55] VITALS: BP 147/82
== END 2022-07-21 11:20 | disposition home or self-care (01) ==
LOC: M OPP 09:00
PROVIDERS: ATTEND Internal Medicine Gastroenterology
DX: K22.89 Other specified disease of esophagus (principal); K22.2 Esophageal obstruction; K29.60 Other gastritis without bleeding; K44.9 Diaphragmatic hernia without obstruction or gangrene; I49.3 Ventricular premature depolarization; G20 Parkinson's disease; Z86.73 Personal history of transient ischemic attack (TIA), and cerebral infarction without residual deficits; Z85.46 Personal history of malignant neoplasm of prostate; Z92.3 Personal history of irradiation; Z79.899 Other long term (current) drug therapy

== ENCOUNTER → 2022-07-30 | Outpatient (REF) | payer MEDICARE, BC ==
[~2022-07-30] MED LIST changes: -LIDOCAINE 2% 100MG/5ML SDV (FOR ANES.) As Ordered ONE; -NS 1,000 ML IV ONE; -propofoL 200 MG/20 ML VIAL As Ordered ONE
== END ==
LOC: M LAB REF 16:30
PROVIDERS: ATTEND Internal Medicine
DX: G51.0 Bell's palsy (principal)

== ENCOUNTER → 2023-06-16 | Outpatient (CLI) | payer MEDICARE, BC ==
[2023-06-16 10:09] LABS: BASO % 0.3 % (0.0-1.0); EOS # 0.1 10^3/uL (0.0-0.5); EOS % 0.9 % (0.0-3.0); HEMATOCRIT 42.5 % (42.0-52.0); HEMOGLOBIN 13.7 g/dl (13.5-17.5); LYMPH # 1.5 10^3/uL (1.5-5.0); LYMPH % 26.2 % (24.0-44.0); MEAN CORPUSCULAR HEMOGLOBIN 30.3 pg (27.0-33.0); MEAN CORPUSCULAR HGB CONC 32.2 g/dl (32.0-36.5); MONO # 0.5 10^3/uL (0.0-0.8); MONO % 9.4 % (2.0-8.0); NEUTROPHILS # 3.6 10^3/uL (1.5-8.5); NEUTROPHILS % 62.9 % (36.0-66.0); PLATELET COUNT, AUTOMATED 207 10^3/uL (150-450); RED BLOOD COUNT 4.52 10^6/uL (4.30-6.10); WHITE BLOOD COUNT 5.8 10^3/uL (4.0-10.0)
[2023-06-16 10:24] LABS: ERYTHROCYTE SEDIMENTATION RATE 7 mm/hr (0-20)
[2023-06-16 10:25] LABS: C REACTIVE PROTEIN QUANTITATIV < 0.40 MG/DL (<1.0)
[2023-06-16 10:27] LABS: ALBUMIN 3.9 G/DL (3.2-5.2); ALKALINE PHOSPHATASE 47 U/L (46-116); ALT/SGPT < 9 U/L (7.0-40); AST/SGOT 18 U/L (<34); BILIRUBIN,TOTAL 0.6 MG/DL (0.3-1.2); BLOOD UREA NITROGEN 17 MG/DL (9-23); CARBON DIOXIDE LEVEL 34 MMOL/L (20-31); CHLORIDE LEVEL 101 MMOL/L (98-107); CREATININE FOR GFR 1.08 MG/DL (0.70-1.30); GLOMERULAR FILTRATION RATE > 60.0 (>35); GLUCOSE, FASTING 88 MG/DL (74-106); POTASSIUM SERUM 4.3 MMOL/L (3.5-5.1); SODIUM LEVEL 140 MMOL/L (136-145); TOTAL PROTEIN 6.9 G/DL (5.7-8.2)
[2023-06-17 14:10] LABS: IgG P18 AB Absent (.); IgG P23 AB Absent (.); IgG P28 AB Absent (.); IgG P30 AB Absent (.); IgG P39 AB Absent (.); IgG P41 AB Absent (.); IgG P45 AB Absent (.); IgG P66 AB Absent (.); IgG P93 AB Absent (.); IgM P23 AB Absent (.); IgM P39 AB Absent (.); IgM P41 AB Absent (.); LYME IgG WB INTERPRETATION Negative (.); LYME IgM WB INTERPRETATION Negative (.)
== END ==
LOC: M RAD 08:53
PROVIDERS: ATTEND Internal Medicine
DX: M25.512 Pain in left shoulder (principal); M19.012 Primary osteoarthritis, left shoulder

== ENCOUNTER → 2023-10-27 | Outpatient (CLI) | payer MEDICARE, BC | LOC: M WUC 14:10 | PROVIDERS: ATTEND Physician Assistant | DX: M79.622 Pain in left upper arm (principal); M19.012 Primary osteoarthritis, left shoulder ==

== ENCOUNTER → 2023-11-04 | Outpatient (CLI) | payer MEDICARE, BC | LOC: M SOG 11:19 | PROVIDERS: ATTEND Physician Assistant | DX: M54.2 Cervicalgia (principal); M47.892 Other spondylosis, cervical region ==

== ENCOUNTER 2023-12-28 11:38 | Day surgery (SDC) | payer MEDICARE, BC ==
[~2023-12-28] VITALS: Ht 170.2 cm; Wt 71.8 kg
[~2023-12-28 11:38] MED LIST changes: +CYCL-707 PO; +OMEP40CA5 PO; +ONDA4TAB6 PO
[2023-12-28] MEDS: NS 1,000 ML IV ONE (12:35)
[2023-12-28] MEDS ORDERED: propofoL 200 MG/20 ML VIAL As Ordered ONE (13:18)
[2023-12-28] MEDS ORDERED: LIDOCAINE 2% 100MG/5ML SDV (FOR ANES.) As Ordered ONE (13:18)
[2023-12-28] MEDS ORDERED: fentaNYL 100 MCG/2 ML INJECTION As Ordered ONE (13:18)
[2023-12-28] MEDS ORDERED: ePHEDrine SULFATE 25 MG/5 ML(5MG/ML) SYRINGE As Ordered ONE (13:34)
[2023-12-28 13:58] VITALS: TEMP 97.1
[2023-12-28 14:14] VITALS: BP 122/67; O2SAT 96
== END 2023-12-28 14:15 | disposition home or self-care (01) ==
LOC: M OPP 11:38
PROVIDERS: ATTEND Internal Medicine Gastroenterology
DX: Z12.11 Encounter for screening for malignant neoplasm of colon (principal); Z86.010 Personal history of colon polyps; Z80.0 Family history of malignant neoplasm of digestive organs; K64.0 First degree hemorrhoids; K22.89 Other specified disease of esophagus; K20.90 Esophagitis, unspecified without bleeding; K31.A0 Gastric intestinal metaplasia, unspecified; F17.200 Nicotine dependence, unspecified, uncomplicated; Z79.899 Other long term (current) drug therapy
CPT/HCPCS: 43249; 88305; G0105; J3010

== ENCOUNTER → 2024-01-14 | Outpatient (CLI) | payer MEDICARE, BC | LOC: M RAD 09:06 | PROVIDERS: ATTEND Internal Medicine Gastroenterology | DX: R11.0 Nausea (principal); R10.13 Epigastric pain; R93.89 Abnormal findings on diagnostic imaging of other specified body structures ==

== ENCOUNTER → 2024-01-27 | Outpatient (CLI) | payer MEDICARE, BC ==
[~2024-01-27] MED LIST changes: +GASTROGRAFIN SOLUTION 30ML ONE; +ISOVUE-370 76% 100ML VIAL ONE
== END ==
LOC: M PLAIMG 11:09
PROVIDERS: ATTEND Internal Medicine Gastroenterology
DX: R93.3 Abnormal findings on diagnostic imaging of other parts of digestive tract (principal); N28.1 Cyst of kidney, acquired; K86.89 Other specified diseases of pancreas; M47.816 Spondylosis without myelopathy or radiculopathy, lumbar region
CPT/HCPCS: 74178; Q9963; Q9967

== ENCOUNTER → 2024-04-06 | Day surgery (SDC) | payer MEDICARE, BC ==
[~2024-04-06] VITALS: Ht 170.2 cm; Wt 72.1 kg
[~2024-04-06] MED LIST changes: +AMIT10TA7 PO; -CARB25TA9; +CARB25TA9 PO; -GASTROGRAFIN SOLUTION 30ML ONE; -ISOVUE-370 76% 100ML VIAL ONE; +LIDOCAINE 2% 100MG/5ML SDV (FOR ANES.) As Ordered ONE; +MULT-40 PO; +propofoL 200 MG/20 ML VIAL As Ordered ONE
[2024-04-06] MEDS: NS 1,000 ML IV ONE (12:33)
[2024-04-06 13:09] VITALS: TEMP 97.6
[2024-04-06 13:33] VITALS: BP 136/73; O2SAT 95
== END | disposition home or self-care (01) ==
LOC: M OPP 12:11
PROVIDERS: ATTEND Internal Medicine Gastroenterology
DX: K22.2 Esophageal obstruction (principal); K22.70 Barrett's esophagus without dysplasia; K44.9 Diaphragmatic hernia without obstruction or gangrene; K22.89 Other specified disease of esophagus; R13.10 Dysphagia, unspecified; R12 Heartburn; Z80.0 Family history of malignant neoplasm of digestive organs; Z79.891 Long term (current) use of opiate analgesic; Z79.899 Other long term (current) drug therapy

== ENCOUNTER → 2024-08-15 | Outpatient (CLI) | payer MEDICARE, BC ==
[~2024-08-15] MED LIST changes: +E-Z-GAS II EFFERVESCENT PACKET (SODIUM BICARB./CITRIC ACID/SIMETHICONE) As Ordered ONE; +E-Z-HD 98% w/w 340GM SUSP BTL As Ordered ONE; +E-Z-PAQUE 96% w/w SUSP 176GM BTL As Ordered ONE; -LIDOCAINE 2% 100MG/5ML SDV (FOR ANES.) As Ordered ONE; +ONDA-282 PO; -ONDA4TAB6 PO; -propofoL 200 MG/20 ML VIAL As Ordered ONE
== END ==
LOC: M RAD 07:47
PROVIDERS: ATTEND Internal Medicine Gastroenterology
DX: R13.10 Dysphagia, unspecified (principal); K22.5 Diverticulum of esophagus, acquired; K22.2 Esophageal obstruction; K21.9 Gastro-esophageal reflux disease without esophagitis

== ENCOUNTER → 2024-11-17 | Outpatient (CLI) | payer MEDICARE, BC ==
[~2024-11-17] MED LIST changes: -E-Z-GAS II EFFERVESCENT PACKET (SODIUM BICARB./CITRIC ACID/SIMETHICONE) As Ordered ONE; -E-Z-HD 98% w/w 340GM SUSP BTL As Ordered ONE; -E-Z-PAQUE 96% w/w SUSP 176GM BTL As Ordered ONE
== END ==
LOC: M RAD 13:56
PROVIDERS: ATTEND Internal Medicine
DX: K59.00 Constipation, unspecified (principal)

== ENCOUNTER → 2024-12-28 | Outpatient (REF) | payer MEDICARE, BC | LOC: M LAB REF 09:10 | PROVIDERS: ATTEND Internal Medicine Gastroenterology | DX: R19.7 Diarrhea, unspecified (principal) ==

== ENCOUNTER 2025-01-26 02:06 | Emergency (ER) | payer MEDICARE, BC ==
[~2025-01-26] VITALS: Ht 170.2 cm; Wt 66.4 kg
[2025-01-26 05:51] LABS: BASO % 0.1 % (0.0-1.0); EOS # 0.1 10^3/uL (0.0-0.5); EOS % 0.8 % (0.0-3.0); HEMATOCRIT 39.8 % (42.0-52.0); LYMPH # 1.5 10^3/uL (1.5-5.0); LYMPH % 20.4 % (24.0-44.0); MEAN CORPUSCULAR HEMOGLOBIN 30.9 pg (27.0-33.0); MEAN CORPUSCULAR HGB CONC 32.7 g/dl (32.0-36.5); MEAN CORPUSCULAR VOLUME 94.5 fl (80.0-96.0); MONO # 0.7 10^3/uL (0.0-0.8); MONO % 8.7 % (2.0-8.0); NEUTROPHILS # 5.2 10^3/uL (1.5-8.5); NEUTROPHILS % 69.7 % (36.0-66.0); PLATELET COUNT, AUTOMATED 212 10^3/uL (150-450); RED BLOOD COUNT 4.21 10^6/uL (4.30-6.10); WHITE BLOOD COUNT 7.4 10^3/uL (4.0-10.0)
[2025-01-26 06:09] LABS: INR 0.95; PARTIAL THROMBOPLASTIN TIME 31.2 SECONDS (24.8-34.2)
[2025-01-26 06:27] LABS: BLOOD UREA NITROGEN 21 MG/DL (9-23); CALCIUM LEVEL 9.1 MG/DL (8.3-10.6); CARBON DIOXIDE LEVEL 31 MMOL/L (20-31); CHLORIDE LEVEL 103 MMOL/L (98-107); CREATININE FOR GFR 0.95 MG/DL (0.70-1.30); GLOMERULAR FILTRATION RATE > 60.0 (>35); GLUCOSE, FASTING 92 MG/DL (74-106); POTASSIUM SERUM 4.3 MMOL/L (3.5-5.1); SODIUM LEVEL 143 MMOL/L (136-145)
[2025-01-26] MEDS: MORPHINE 2 MG/ML 1ML VIAL IV ONE (06:40)
[2025-01-26] MEDS: ACETAMINOPHEN *IV* 1,000 MG in IV 1 EA IV ONE (07:00)
[2025-01-26 08:15] VITALS: BP 142/67; TEMP 97.4; O2SAT 97
== END 2025-01-26 08:45 | disposition short-term general hospital (02) ==
LOC: M ED 02:06
DX: S06.6X9A Traumatic subarachnoid hemorrhage with loss of consciousness of unspecified duration, initial encounter (principal); S00.83XA Contusion of other part of head, initial encounter; W06.XXXA Fall from bed, initial encounter; Y92.009 Unspecified place in unspecified non-institutional (private) residence as the place of occurrence of the external cause; Y93.9 Activity, unspecified; Y99.9 Unspecified external cause status; E55.9 Vitamin D deficiency, unspecified; K21.9 Gastro-esophageal reflux disease without esophagitis; F32.A Depression, unspecified; G20.C Parkinsonism, unspecified; Z79.899 Other long term (current) drug therapy
CPT/HCPCS: 70450; 72125; 80048; 85025; 85610; 85730; 96365; 96366; 99285; J0131

== ENCOUNTER 2025-02-08 12:41 | Emergency (ER) | payer MEDICARE, BC ==
[~2025-02-08] VITALS: Ht 170.2 cm; Wt 67.6 kg
[2025-02-08 13:34] LABS: BASO % 0.2 % (0.0-1.0); EOS # 0.1 10^3/uL (0.0-0.5); EOS % 1.1 % (0.0-3.0); HEMATOCRIT 39.2 % (42.0-52.0); HEMOGLOBIN 12.5 g/dl (13.5-17.5); LYMPH # 1.6 10^3/uL (1.5-5.0); LYMPH % 25.8 % (24.0-44.0); MEAN CORPUSCULAR HEMOGLOBIN 30.6 pg (27.0-33.0); MEAN CORPUSCULAR HGB CONC 31.9 g/dl (32.0-36.5); MEAN CORPUSCULAR VOLUME 96.1 fl (80.0-96.0); MONO # 0.5 10^3/uL (0.0-0.8); MONO % 8.6 % (2.0-8.0); NEUTROPHILS % 63.8 % (36.0-66.0); PLATELET COUNT, AUTOMATED 226 10^3/uL (150-450); RED BLOOD COUNT 4.08 10^6/uL (4.30-6.10); WHITE BLOOD COUNT 6.2 10^3/uL (4.0-10.0)
[2025-02-08 13:48] LABS: INR 0.93; PROTHROMBIN TIME 12.7 SECONDS (12.5-14.5)
[2025-02-08 14:01] LABS: BLOOD UREA NITROGEN 18 MG/DL (9-23); CALCIUM LEVEL 8.8 MG/DL (8.3-10.6); CARBON DIOXIDE LEVEL 34 MMOL/L (20-31); CHLORIDE LEVEL 99 MMOL/L (98-107); CREATININE FOR GFR 0.85 MG/DL (0.70-1.30); GLOMERULAR FILTRATION RATE > 60.0 (>35); GLUCOSE, FASTING 150 MG/DL (74-106); POTASSIUM SERUM 4.3 MMOL/L (3.5-5.1); SODIUM LEVEL 139 MMOL/L (136-145)
[2025-02-08] MEDS ORDERED: ISOVUE-370 76% 100ML VIAL As Ordered ONE (18:27)
[2025-02-08 20:50] VITALS: O2SAT 99
[2025-02-08 21:03] VITALS: BP 149/72; TEMP 96.6
== END 2025-02-08 21:15 | disposition home or self-care (01) ==
LOC: M ED 12:41
DX: I62.02 Nontraumatic subacute subdural hemorrhage (principal); H53.2 Diplopia; K21.9 Gastro-esophageal reflux disease without esophagitis; G20.C Parkinsonism, unspecified; M19.90 Unspecified osteoarthritis, unspecified site; F32.9 Major depressive disorder, single episode, unspecified; Z85.46 Personal history of malignant neoplasm of prostate; Z85.831 Personal history of malignant neoplasm of soft tissue; Z79.899 Other long term (current) drug therapy
CPT/HCPCS: 70450; 70496; 70498; 70551; 71045; 80047; 80048; 85025; 85610; 86850; 86900; 86901; 93005; 93041; 94760; 99285; Q9967

== ENCOUNTER → 2025-02-23 | Outpatient (CLI) | payer MEDICARE, BC | LOC: M RAD 14:14 | PROVIDERS: ATTEND Neurological Surgery | DX: S06.5X0D Traumatic subdural hemorrhage without loss of consciousness, subsequent encounter (principal); Y93.9 Activity, unspecified; Y92.9 Unspecified place or not applicable ==

== ENCOUNTER → 2025-03-01 | Outpatient (CLI) | payer MEDICARE, BC ==
[~2025-03-01] MED LIST changes: +DULO30CA9 PO
== END ==
LOC: M RAD 09:15
PROVIDERS: ATTEND Physician Assistant
DX: S06.5X0A Traumatic subdural hemorrhage without loss of consciousness, initial encounter (principal); Y93.9 Activity, unspecified; Y92.9 Unspecified place or not applicable

== ENCOUNTER 2025-03-02 10:53 | Inpatient (IN) | payer MEDICARE, BC ==
[2025-03-02] VITALS (34 sets, daily range): BP systolic 101–169; BP diastolic 59–82; TEMP 97.7–98.1; O2SAT 95–100
[~2025-03-02 10:53] MED LIST changes: -DULO30CA9 PO
[2025-03-02 12:13] LABS: BASO % 0.3 % (0.0-1.0); EOS % 0.5 % (0.0-3.0); HEMATOCRIT 39.7 % (42.0-52.0); HEMOGLOBIN 12.9 g/dl (13.5-17.5); LYMPH # 1.7 10^3/uL (1.5-5.0); LYMPH % 22.8 % (24.0-44.0); MEAN CORPUSCULAR HEMOGLOBIN 31.4 pg (27.0-33.0); MEAN CORPUSCULAR HGB CONC 32.5 g/dl (32.0-36.5); MEAN CORPUSCULAR VOLUME 96.6 fl (80.0-96.0); MONO # 0.7 10^3/uL (0.0-0.8); MONO % 9.6 % (2.0-8.0); NEUTROPHILS % 66.5 % (36.0-66.0); PLATELET COUNT, AUTOMATED 201 10^3/uL (150-450); RED BLOOD COUNT 4.11 10^6/uL (4.30-6.10); WHITE BLOOD COUNT 7.5 10^3/uL (4.0-10.0)
[2025-03-02] MEDS ORDERED: DEXTROSE 50% 50ML SYRINGE IV PRN (12:40)
[2025-03-02] MEDS ORDERED: ONDANSETRON 4MG 2ML VIAL IV PRN (12:40)
[2025-03-02] MEDS ORDERED: METOPROLOL 5 MG/5 ML VIAL IV PRN (12:40)
[2025-03-02] MEDS ORDERED: GLUCOSE 4 GM CHEW PO PRN (12:40)
[2025-03-02] MEDS ORDERED: GLUCAGON INJ 1MG VIAL SC PRN (12:40)
[2025-03-02] MEDS ORDERED: hydrALAZINE 20MG/ML 1ML VIAL IV PRN (12:40)
[2025-03-02 12:48] LABS: FREE T4 1.11 NG/DL (0.89-1.76); THYROID STIMULATING HORMONE 0.905 uIU/ML (0.55-4.78)
[2025-03-02 12:49] LABS: ALBUMIN 4.1 G/DL (3.2-5.2); ALKALINE PHOSPHATASE 42 U/L (40-129); ALT/SGPT < 9 U/L (7.0-40); AST/SGOT 23 U/L (<34); BILIRUBIN,TOTAL 0.5 MG/DL (0.3-1.2); BLOOD UREA NITROGEN 18 MG/DL (9-23); CALCIUM LEVEL 9.5 MG/DL (8.3-10.6); CARBON DIOXIDE LEVEL 33 MMOL/L (20-31); CHLORIDE LEVEL 102 MMOL/L (98-107); CREATININE FOR GFR 0.86 MG/DL (0.70-1.30); GLOMERULAR FILTRATION RATE 85.9 (>35); GLUCOSE, FASTING 69 MG/DL (74-106); MAGNESIUM LEVEL 2.1 MG/DL (1.8-2.4); PHOSPHORUS LEVEL 3.5 MG/DL (2.4-5.1); POTASSIUM SERUM 4.5 MMOL/L (3.5-5.1); SODIUM LEVEL 141 MMOL/L (136-145)
[2025-03-02] MEDS: levETIRAcetam INJection 1,000 MG in DEXTROSE 5% (D5W) MINI-BAG PLU 100 ML IV SCH (13:37)
[2025-03-02] MEDS: NS (Normal Saline) 0.9% 1,000 ML IV SCH (13:38)
[2025-03-02] MEDS: ceFAZolin SODIUM 2 GM in DEXTROSE 5% (D5W) ADV/MINI-BAG 50 ML IV ONE ×2 (13:38→16:14)
[2025-03-02 13:51] LABS: INR 1.04; PARTIAL THROMBOPLASTIN TIME 30.4 SECONDS (24.8-34.2); PROTHROMBIN TIME 13.9 SECONDS (12.5-14.5)
[2025-03-02] MEDS ORDERED: LIDOCAINE 1% MDV 20ML VIAL As Ordered ONE (14:38)
[2025-03-02] MEDS ORDERED: DULO30CA9 PO (15:00)
[2025-03-02] MEDS ORDERED: HOME MED LIST COMPLETE! XX SCH (15:00)
[2025-03-02] MEDS ORDERED: LIDOCAINE W/EPINEPHRINE 1% 20ML VIAL As Ordered ONE (16:05)
[2025-03-02] MEDS ORDERED: MIDAZOLAM INJ 2MG/2ML VIAL As Ordered ONE (16:05)
[2025-03-02] MEDS ORDERED: fentaNYL 100 MCG/2 ML INJECTION As Ordered ONE (16:05)
[2025-03-02] MEDS: LIDOCAINE 1% MDV 20ML VIAL SC ONE (16:14)
[2025-03-02] MEDS: SINEMET 25-100 MG TAB PO SCH (16:14)
[2025-03-02] MEDS: fentaNYL 100 MCG/2 ML INJECTION IV ONE (16:20)
[2025-03-02] MEDS: MIDAZOLAM INJ 2MG/2ML VIAL IV STA (16:25)
[2025-03-02] MEDS: LIDOCAINE W/EPINEPHRINE 1% 20ML VIAL SC ONE ×2 (16:28→17:51)
[2025-03-02 19:23] LABS: APPEARANCE, URINE CLEAR (CLEAR); BACTERIA, URINE AUTO NEGATIVE (NEGATIVE); BILIRUBIN, URINE AUTO NEGATIVE (NEGATIVE); BLOOD, URINE BLOOD NEGATIVE (NEGATIVE); COLOR, URINE YELLOW (YELLOW); GLUCOSE, URINE (UA) AUTO NEGATIVE (NEGATIVE); KETONE, URINE AUTO TRACE mg/dL (NEGATIVE); LEUKOCYTE ESTERASE, URINE AUTO NEGATIVE (NEGATIVE); NITRITE, URINE AUTO NEGATIVE (NEGATIVE); PROTEIN, URINE AUTO NEGATIVE (NEGATIVE); RBC, URINE AUTO 1 /HPF (0-3); SPECIFIC GRAVITY URINE AUTO 1.012 (1.002-1.035); SQUAMOUS EPITHELIAL CELL UR AU 1 /HPF (0-6); UROBILINOGEN, URINE AUTO 0.2 mg/dL (0.0-2.0); WBC, URINE AUTO 0 /HPF (0-3)
[2025-03-02] MEDS: DOCUSATE SODIUM 100MG CAPSULE PO SCH (20:21)
[2025-03-02] MEDS: SENNA 8.6 MG TAB (SENOKOT) PO SCH (20:21)
[2025-03-02] MEDS: DULoxetine 30MG CAPSULE (CYMBALTA) PO SCH (20:22)
[2025-03-02] MEDS: ACETAMINOPHEN 325 MG TAB PO PRN (23:13)
[2025-03-03] VITALS (23 sets, daily range): BP systolic 101–140; BP diastolic 51–91; TEMP 98–99.2; O2SAT 94–97
[2025-03-03] MEDS: oxyCODONE 5MG TAB PO PRN (01:08)
[2025-03-03 04:53] LABS: HEMATOCRIT 37.4 % (42.0-52.0); MEAN CORPUSCULAR HEMOGLOBIN 30.6 pg (27.0-33.0); MEAN CORPUSCULAR HGB CONC 32.1 g/dl (32.0-36.5); MEAN CORPUSCULAR VOLUME 95.4 fl (80.0-96.0); PLATELET COUNT, AUTOMATED 198 10^3/uL (150-450); RED BLOOD COUNT 3.92 10^6/uL (4.30-6.10); WHITE BLOOD COUNT 6.4 10^3/uL (4.0-10.0)
[2025-03-03 05:29] LABS: CALCIUM LEVEL 8.8 MG/DL (8.3-10.6); CREATININE FOR GFR 0.87 MG/DL (0.70-1.30); GLOMERULAR FILTRATION RATE 85.6 (>35); POTASSIUM SERUM 4.4 MMOL/L (3.5-5.1)
[2025-03-03] MEDS: fentaNYL 100 MCG/2 ML INJECTION IV PRN (09:12)
[2025-03-03] MEDS: PANTOPRAZOLE 40MG VIAL IV SCH (09:12)
[2025-03-03] MEDS ORDERED: LanTUS (INSULIN GLARGINE INJ) 1 UNITS/0.01 ML SC SCH (21:00)
== END 2025-03-03 14:58 | disposition home or self-care (01) | DRG 25 ==
LOC: M ICU 11:17
PROVIDERS: ADMIT Internal Medicine Pulmonary Disease; ATTEND Internal Medicine Pulmonary Disease
PROC: 009430Z Drainage of Intracranial Subdural Space with Drainage Device, Percutaneous Approach (ICD-10-PCS; principal; 2025-03-03)
DX: S06.5X0A Traumatic subdural hemorrhage without loss of consciousness, initial encounter (principal); G93.5 Compression of brain; G20.A1 Parkinson's disease without dyskinesia, without mention of fluctuations; K21.9 Gastro-esophageal reflux disease without esophagitis; W19.XXXA Unspecified fall, initial encounter; Y92.9 Unspecified place or not applicable; Z98.49 Cataract extraction status, unspecified eye; Z79.899 Other long term (current) drug therapy; Z86.73 Personal history of transient ischemic attack (TIA), and cerebral infarction without residual deficits; Z85.46 Personal history of malignant neoplasm of prostate

== ENCOUNTER → 2025-03-29 | Outpatient (CLI) | payer MEDICARE, BC ==
[~2025-03-29] MED LIST changes: +DULO30CA9 PO; +MAGN400O74 PO; -MILKSUS5 PO
== END ==
LOC: M RAD 06:59
PROVIDERS: ATTEND Physician Assistant
DX: S06.5X0D Traumatic subdural hemorrhage without loss of consciousness, subsequent encounter (principal)

== ENCOUNTER → 2025-05-25 | Outpatient (CLI) | payer MEDICARE, BC ==
[~2025-05-25] MED LIST changes: +AMIT10TA11 PO; -AMIT10TA7 PO
== END ==
LOC: M RAD 14:50
PROVIDERS: ATTEND Physician Assistant
DX: S06.5X0D Traumatic subdural hemorrhage without loss of consciousness, subsequent encounter (principal)

== ENCOUNTER 2025-06-15 09:44 | Emergency (ER) | payer MEDICARE, BC ==
[~2025-06-15] VITALS: Ht 170.2 cm; Wt 67.8 kg
[2025-06-15] MEDS ORDERED: ACET-683 PO (10:01)
[2025-06-15] MEDS ORDERED: HOME MED LIST COMPLETE! XX SCH (10:15)
[2025-06-15 11:10] LABS: BASO # 0.0 10^3/uL (0.0-0.2); BASO % 0.4 % (0.0-1.0); EOS # 0.2 10^3/uL (0.0-0.5); EOS % 4.1 % (0.0-3.0); LYMPH # 1.5 10^3/uL (1.5-5.0); LYMPH % 26.8 % (24.0-44.0); MONO # 0.6 10^3/uL (0.0-0.8); MONO % 10.7 % (2.0-8.0); NEUTROPHILS # 3.3 10^3/uL (1.5-8.5); NEUTROPHILS % 57.8 % (36.0-66.0); PLATELET COUNT, AUTOMATED 183 10^3/uL (150-450)
[2025-06-15 11:26] LABS: INR 1.0
[2025-06-15 11:34] LABS: ERYTHROCYTE SEDIMENTATION RATE 4 mm/hr (0-20)
[2025-06-15 11:39] LABS: ALT/SGPT < 9 U/L (7.0-40); AST/SGOT 23 U/L (<34); CALCIUM LEVEL 8.8 MG/DL (8.3-10.6); CARBON DIOXIDE LEVEL 32 MMOL/L (20-31); CHLORIDE LEVEL 103 MMOL/L (98-107); CREATININE FOR GFR 0.94 MG/DL (0.70-1.30); GLOMERULAR FILTRATION RATE 80.4 (>35); POTASSIUM SERUM 4.6 MMOL/L (3.5-5.1); SODIUM LEVEL 143 MMOL/L (136-145)
[2025-06-15] MEDS: predniSONE 20 MG TAB PO ONE (14:07)
[2025-06-15 14:09] VITALS: BP 167/81; TEMP 97.9; O2SAT 98
== END 2025-06-15 14:21 | disposition home or self-care (01) ==
LOC: M ED 09:44
DX: R51.9 Headache, unspecified (principal); G20.C Parkinsonism, unspecified; Z85.46 Personal history of malignant neoplasm of prostate; K21.9 Gastro-esophageal reflux disease without esophagitis; Z86.73 Personal history of transient ischemic attack (TIA), and cerebral infarction without residual deficits; Z79.899 Other long term (current) drug therapy
CPT/HCPCS: 70450; 71045; 80048; 80076; 84443; 85025; 85610; 85652; 85730; 93005; 93041; 94760; 99285; J7512